=== PATIENT | female | born 1975 | race Caucasian/White ===

== ENCOUNTER 2021-04-04 16:22 | Observation (INO) ==
[2021-04-04] MEDS ORDERED: hydrALAZINE 20 MG/1 ML VIAL IV PRN (17:33)
[2021-04-04] MEDS ORDERED: GLUCAGON 1 MG VIAL IM PRN (17:33)
[2021-04-04] MEDS ORDERED: DEXTROSE 50% 25 GM/50 ML VIAL IV PRN (17:33)
[2021-04-04] MEDS ORDERED: ACETAMINOPHEN 325 MG TABLET PO PRN (17:33)
[2021-04-04] MEDS ORDERED: ONDANSETRON 4 MG/2 ML VIAL IV PRN (17:33)
[2021-04-04] MEDS ORDERED: NICOTINE 7 MG/24 HR PATCH TRANSDERM PRN (17:40)
[2021-04-04 18:34] LABS: Hemoglobin 11.4 GM/DL (12.0-16.0)
[2021-04-04] MEDS: PANTOPRAZOLE 40 MG VIAL IV SCH (20:53)
[2021-04-05] MEDS: LACTATED RINGERS 1,000 ML IV SCH ×3 (00:37→17:09)
[2021-04-05 01:08] LABS: Hematocrit 29.9 VOL% (35.7-47.0); Hemoglobin 10.6 GM/DL (12.0-16.0)
[2021-04-05 05:53] LABS: Basophils % 0.8 % (0.0-0.8); Eosinophils # 0.1 10*3/uL (0.0-0.87); Eosinophils % 1.3 % (0.00-10.9); Hemoglobin 10.3 GM/DL (12.0-16.0); Immature Granulocytes % 0.4 %; Immature Granulocytes Absolute 0.02 #; Lymphocytes % 37.7 % (21.3-54.2); Mean Corpuscular HGB Conc 35.5 GM/DL (32-36); Mean Platelet Volume 11.1 FL (9.6-12.0); Monocytes % 10.9 % (1.7-12.7); Neutrophils % 48.9 % (38.7-73.9); Platelet Count 133 T/CUMM (130-400); Red Blood Count 2.99 MC/CUMM (3.8-5.5); Red Cell Distribution Width 11.6 % (9.3-17.3); White Blood Count 5.3 T/CUMM (4-12)
[2021-04-05 06:18] LABS: Albumin 2.7 G/DL (3.4-5.0); Bilirubin,Total 0.8 MG/DL (0.20-1.00); Calcium 8.1 MG/DL (8.5-10.1); Osmolality,Calculated 284.1 MOS/KG (273-304); Potassium 3.4 MMOL/L (3.5-5.1); Risk Ratio 4.41; Thyroid Stimulating Hormone 2.05 uIU/ml (0.358-3.74); Total Protein 5.1 G/DL (6.4-8.2); VLDL Cholesterol 22.6 MG/DL
[2021-04-05 06:21] LABS: PT Patient Result 11.4 SECS (10.5-12.0)
[2021-04-05] MEDS ORDERED: POTASSIUM CHLORIDE RIDER 10 MEQ/100 ML PREMIX IV PRN (07:12)
[2021-04-05] MEDS: PANTOPRAZOLE 40 MG VIAL IV SCH ×2 (08:48→20:51)
[2021-04-05] MEDS ORDERED: propofoL 200 MG/20 ML VIAL IV ONE (11:31)
[2021-04-05] MEDS ORDERED: LIDOCAINE 2% 5 ML VIAL ONE (11:31)
[2021-04-05 13:15] LABS: Hematocrit 27.2 VOL% (35.7-47.0); Hemoglobin 9.6 GM/DL (12.0-16.0)
[2021-04-05] MEDS: GABAPENTIN 100 MG CAPSULE PO SCH (14:32)
[2021-04-05] MEDS: TAMOXIFEN 10 MG TABLET PO SCH (14:32)
[2021-04-05 17:28] LABS: Hematocrit 28.8 VOL% (35.7-47.0); Hemoglobin 9.8 GM/DL (12.0-16.0)
[2021-04-05] MEDS ORDERED: TEMAZEPAM 15 MG CAPSULE PO SCH (21:00)
[2021-04-05] MEDS ORDERED: GABAPENTIN 400 MG CAPSULE PO SCH (21:00)
[2021-04-05] MEDS ORDERED: VENLAFAXINE XR 75 MG CAPSULE PO SCH (21:00)
[2021-04-05 23:55] LABS: Hematocrit 29.6 VOL% (35.7-47.0); Hemoglobin 10.4 GM/DL (12.0-16.0)
[2021-04-06] MEDS: LACTATED RINGERS 1,000 ML IV SCH ×3 (04:05→11:08)
[2021-04-06 05:36] LABS: Eosinophils # 0.2 10*3/uL (0.0-0.87); Eosinophils % 3.6 % (0.00-10.9); Hematocrit 28.3 VOL% (35.7-47.0); Immature Granulocytes % 0.5 %; Immature Granulocytes Absolute 0.02 #; Lymphocytes # 1.7 10*3/uL (1.4-4.0); Lymphocytes % 41.6 % (21.3-54.2); Mean Corpuscular HGB Conc 35.3 GM/DL (32-36); Mean Corpuscular Volume 95.9 FL (87-102); Mean Platelet Volume 11.1 FL (9.6-12.0); Monocytes % 9.2 % (1.7-12.7); Neutrophils % 44.1 % (38.7-73.9); PT Patient Result 11.3 SECS (10.5-12.0); Platelet Count 140 T/CUMM (130-400); Red Blood Count 2.95 MC/CUMM (3.8-5.5); Red Cell Distribution Width 11.7 % (9.3-17.3); White Blood Count 4.1 T/CUMM (4-12)
[2021-04-06 06:00] LABS: Albumin 2.8 G/DL (3.4-5.0); Bilirubin,Total 0.5 MG/DL (0.20-1.00); Calcium 8.3 MG/DL (8.5-10.1); Osmolality,Calculated 282.8 MOS/KG (273-304); Potassium 3.6 MMOL/L (3.5-5.1); Total Protein 5.2 G/DL (6.4-8.2)
[2021-04-06 06:58] LABS: Eosinophils 5 % (0-10); Lymphocytes 43 % (20-55); Platelet Estimate Adequate; Segmented Neutrophils 45 % (50-85); Smudge Cells Few; Total Cells Counted 100
[2021-04-06 06:59] LABS: Anisocytosis 1+
[2021-04-06 08:24] VITALS: BP 121/80
[2021-04-06] MEDS: TAMOXIFEN 10 MG TABLET PO SCH (09:29)
[2021-04-06] MEDS: GABAPENTIN 100 MG CAPSULE PO SCH (09:29)
[2021-04-06] MEDS: PANTOPRAZOLE 40 MG VIAL IV SCH (09:29)
== END 2021-04-06 12:21 | disposition home or self-care (01) ==
LOC: N.ED 16:22 → N.EDINP 16:22 → N.TELES 17:58
PROVIDERS: ADMIT Internal Medicine; ATTEND Internal Medicine